=== PATIENT | female | born 1960 | race African-American/Black ===

== ENCOUNTER 2018-03-30 08:43 | Day surgery (SDC) | payer MEDICAID ==
[~2018-03-30] VITALS: Ht 160 cm; Wt 147.9 kg
[~2018-03-30 08:43] MED LIST: FLUT9.9S NS; GABA300S PO; HYDR-4094 PO; LISI10TA5 PO; LORA10TA7 PO; METF500T6 PO; OMEP20TA2 PO; PARO-41 PO; SIMV20TA6 PO; TOPI50TA PO
[2018-03-30] MEDS ORDERED: ONDANSETRON HCL 4MG/2ML VIAL IV PRN (10:45)
[2018-03-30] MEDS ORDERED: SODIUM CHLORIDE 0.9% 1,000 ML IV SCH (11:00)
[2018-03-30] MEDS ORDERED: PROPOFOL 200MG/20ML VIAL IV ONE ×3 (11:59→12:25)
[2018-03-30] MEDS ORDERED: SIMETHICONE 40 MG/0.6 ML 30ML ONE (12:04)
== END 2018-03-30 15:30 | disposition home or self-care (01) ==
LOC: OR 08:43
PROVIDERS: ATTEND Internal Medicine Gastroenterology
DX: Z12.11 Encounter for screening for malignant neoplasm of colon (principal); K29.50 Unspecified chronic gastritis without bleeding; K57.30 Diverticulosis of large intestine without perforation or abscess without bleeding; K64.8 Other hemorrhoids; K44.9 Diaphragmatic hernia without obstruction or gangrene; E11.9 Type 2 diabetes mellitus without complications; I10 Essential (primary) hypertension; E78.5 Hyperlipidemia, unspecified; F41.9 Anxiety disorder, unspecified; K21.0 Gastro-esophageal reflux disease with esophagitis; E66.01 Morbid (severe) obesity due to excess calories; Z88.0 Allergy status to penicillin; Z88.8 Allergy status to other drugs, medicaments and biological substances; Z91.010 Allergy to peanuts; Z79.899 Other long term (current) drug therapy
CPT/HCPCS: 43239; 82962; 88305; 88312; 88313; G0121; J7030; J2704